=== PATIENT | male | born 1960 | race American Indian/Alaskan Native ===

== ENCOUNTER 2017-08-19 11:58 | Emergency (ER) | payer BC ==
[2017-08-19 14:40] LABS: Basophils % (Auto) 0.6 % (0.0-1.8); Eosinophils % (Auto) 3.4 % (0.0-4.3); Hematocrit 44.3 % (35.5-45.6); Mean Corpuscular HGB Conc 34 % (32-34); Mean Corpuscular Hemoglobin 29 pg (28-32); Mean Corpuscular Volume 86 fl (84-94); Platelet Count 203 K/mm3 (140-440); Red Blood Count 5.16 M/mm3 (3.65-5.03); Red Cell Distribution Width 14.5 % (13.2-15.2); White Blood Count 6.7 K/mm3 (4.5-11.0)
[2017-08-19 14:57] LABS: Blood Urea Nitrogen 18 mg/dL (9-20); Calcium 9.1 mg/dL (8.4-10.2); Carbon Dioxide 24 mmol/L (22-30); Glucose 226 mg/dL (75-100)
[2017-08-19 14:58] LABS: Anion Gap 16 mmol/L; Chloride 100.6 mmol/L (98-107); Potassium 3.9 mmol/L (3.6-5.0); Sodium 137 mmol/L (137-145)
--- NOTE | 2017-08-19 15:03 | XRay Report ---
Chest 2 views: History: Chest pain/SOB. Findings: Normal cardiomediastinal silhouette. Trachea is midline. No consolidation, pneumothorax or pleural effusion. Impression: No acute cardiopulmonary findings.
[2017-08-19] MEDS ORDERED: MORPHINE IV ONE (17:10)
[2017-08-19] MEDS ORDERED: ZOFRAN IV ONE (17:10)
[2017-08-19] MEDS ORDERED: NACL 0.9% 1000 ML 1,000 ML IV ONE (17:10)
--- NOTE | 2017-08-19 19:27 | Emergency Department Report ---
HPI - General Chief Complaint: Chest Pain Time Seen by Provider: 08/19/17 17:09 - HPI HPI: The patient is a 56-year-old male presents for evaluation of chest pain. The patient reports right-sided chest pain she has not pain last night, 20 hours prior to my evaluation. He states that his pain has been on and off since, in severity, sharp in quality, exacerbated with movement of the right arm, radiating into the right proximal arm. The patient denies fever, neck pain, parasthesias, dyspnea, cough, hemoptysis, palpitations, dizziness, syncope, unilateral leg swelling, calf muscle pain. Patient also denies cocaine or other stimulant use, history of DVT or PE, recent immobilization, or history of cancer. ED Past Medical Hx - Past Medical History Previous Medical History?: Yes Hx Hypertension: Yes Hx Diabetes: Yes - Surgical History Past Surgical History?: Yes Additional Surgical History: rt arm rotator cuff repair [id number]; Thyroidectomy 2008 - Social History Smoking Status: Never Smoker Substance Use Type: None - Medications Home Medications: Home Medications Medication Instructions Recorded Confirmed Last Taken Type Allopurinol [Zyloprim] 100 mg PO QDAY 07/09/15 07/09/15 07/08/15 History Atorvastatin Calcium [Lipitor] 20 mg PO QHS 07/09/15 07/09/15 07/08/15 History Canagliflozin (Nf) [Invokana] 100 mg PO QAM 07/09/15 07/09/15 07/08/15 History Glimepiride [Amaryl] 2 mg PO QAM 07/09/15 07/09/15 07/08/15 History Ibuprofen [Motrin 400 MG tab] 400 mg PO Q8H PRN #30 tablet 07/09/15 Unknown Rx Olmesartan/Hydrochlorothiazide 1 tab PO QDAY 07/09/15 07/09/15 07/08/15 History [Benicar HCT 40-25 mg] Sitagliptin Phosphate [Januvia] 100 mg PO QDAY 07/09/15 07/09/15 07/08/15 History Synthroid 137 mcg PO QDAY 07/09/15 07/09/15 07/08/15 History Zolpidem [Ambien] 10 mg PO QHS 07/09/15 07/09/15 07/08/15 History cloNIDine [Catapres] 0.2 mg PO QHS 07/09/15 07/09/15 07/08/15 History traMADol [Ultram 50 MG tab] 50 mg PO Q6HR PRN #20 tablet 07/09/15 Unknown Rx traMADol [Ultram 50 MG tab] 50 mg PO Q6HR PRN #20 tablet 08/19/17 Unknown Rx ED Review of Systems ROS: Stated complaint: CHEST PAIN Other details as noted in HPI Constitutional: denies: fever ENT: denies: throat or neck pain Respiratory: denies: cough, shortness of breath Cardiovascular: reports chest pain Endocrine: denies unexplained weight loss or gain Gastrointestinal: denies: abdominal pain, nausea Genitourinary: denies: dysuria Musculoskeletal: denies: leg swelling Skin: denies: rash Neurological: denies: headache Hematological/Lymphatic: denies: easy bleeding or easy bruising Psych: denies sadness or hopelessness Physical Exam - Physical Exam Vital Signs: Vital Signs 08/19/17 08/19/17 08/19/17 13:46 17:03 17:05 Temperature 98.2 F Pulse Rate 87 75 Respiratory 16 18 18 Rate Blood Pressure 132/55 128/84 O2 Sat by Pulse 97 98 Oximetry 08/19/17 08/19/17 08/19/17 17:11 17:21 17:30 Temperature Pulse Rate 77 76 75 Respiratory 18 13 19 Rate Blood Pressure 128/84 128/84 133/88 O2 Sat by Pulse 98 99 97 Oximetry 08/19/17 08/19/17 08/19/17 18:00 18:30 19:00 Temperature Pulse Rate 74 72 73 Respiratory 17 15 18 Rate Blood Pressure 138/84 139/81 147/90 O2 Sat by Pulse 99 99 100 Oximetry 08/19/17 19:02 Temperature Pulse Rate 76 Respiratory Rate Blood Pressure O2 Sat by Pulse Oximetry Physical Exam: General: well-nourished, well-developed, no acute distress Head: Normocephalic, atraumatic Eyes: normal sclera ENT: Mucous membranes are pale and dry Neck: No neck stiffness, no cervical adenopathy Respiratory: Breath sounds equal bilaterally, no wheezing, rales, or rhonchi Cardio: S1 and S2 present, no murmurs, rubs, gallops, capillary refill is delayed Abdomen: Normoactive bowel sounds, soft abdomen, no tenderness Chest WALL/Back: tenderness to palpation of the right lateral chest wall and intercostal space 4-5 at the anterior axillary line, no redness, warmth, fluctuance, crepitus, swelling, ecchymosis or purpura Musc: In the arms or legs, no swelling of the right arm, sensation, motor function, distal pulses intact in the right arm, right arm compartments are soft and pliable, no signs of compartment syndrome Skin: No rash Neuro: no facial drooping, normal speech Psych: Normal affect ED Course Vital Signs 08/19/17 08/19/17 08/19/17 13:46 17:03 17:05 Temperature 98.2 F Pulse Rate 87 75 Respiratory 16 18 18 Rate Blood Pressure 132/55 128/84 O2 Sat by Pulse 97 98 Oximetry 08/19/17 08/19/17 08/19/17 17:11 17:21 17:30 Temperature Pulse Rate 77 76 75 Respiratory 18 13 19 Rate Blood Pressure 128/84 128/84 133/88 O2 Sat by Pulse 98 99 97 Oximetry 08/19/17 08/19/17 08/19/17 18:00 18:30 19:00 Temperature Pulse Rate 74 72 73 Respiratory 17 15 18 Rate Blood Pressure 138/84 139/81 147/90 O2 Sat by Pulse 99 99 100 Oximetry 08/19/17 19:02 Temperature Pulse Rate 76 Respiratory Rate Blood Pressure O2 Sat by Pulse Oximetry ED Medical Decision Making - Lab Data Result diagrams: 08/19/17 14:09 08/19/17 14:09 - Medical Decision Making The patient was seen and examined by myself. The patient is placed on a radiation monitor and continuous pulse ox. On initial evaluation, the patient was found to be in no distress. EKG was negative for findings suggestive of acute cardiac infarct. Labs and imaging are obtained. Chest x-ray is negative for pneumothorax, focal consolidation, pulmonary vascular congestion, pleural effusion, or other obvious acute cardiopulmonary disease process. Lab results revealed elevated glucose level of >200, with normal bicarbonate and anion gap, and otherwise labs were non-concerning including levels of troponin, WBC, hemoglobin, hematocrit, electrolytes, renal function. The patient is given 1 L normal saline fluid bolus for treatment of dehydration and hyperglycemia. The patient was reevaluated and reported that their symptoms were markedly improved. As the patient has a VIOLA risk score less than 2, and a well's score less than 2, the patient is at low risk of ACS or pulmonary emboli etiology of their symptoms. The patient is stable for discharge with outpatient follow-up. The patient is given follow-up and return instructions. The patient expressed understanding and agreed with the plan. The patient is discharged in stable condition. Critical care attestation.: If time is entered above; I have spent that time in minutes in the direct care of this critically ill patient, excluding procedure time. ED Disposition Clinical Impression: Acute chest pain, Dehydration, mild, Acute hyperglycemia Disposition: TO HOME OR SELFCARE Is pt being admited?: No Does the pt Need Aspirin: No Condition: Stable Instructions: Chest Pain (ED), Diabetic Hyperglycemia (ED) Prescriptions: traMADol [Ultram 50 MG tab] 50 mg PO Q6HR PRN #20 tablet PRN Reason: Pain Referrals: PRIMARY CARE,MD [Primary Care Provider] - 3-5 Days Time of Disposition: 19:20
[2017-08-19 19:46] VITALS: BP 143/84
== END 2017-08-19 19:50 | disposition home or self-care (01) ==
LOC: ED 11:58
DX: R07.89 Other chest pain (principal); E86.0 Dehydration; E11.65 Type 2 diabetes mellitus with hyperglycemia; I10 Essential (primary) hypertension
CPT/HCPCS: 36415; 71020; 80048; 84484; 85025; 93005; 93010; 96361; 96374; 96375; 99284; J2270; J2405; J7030

== ENCOUNTER 2018-06-22 17:56 | Emergency (ER) | payer BC ==
[2018-06-22 21:58] VITALS: BP 163/98
[2018-06-22] MEDS ORDERED: ULTRAM PO ONE (22:46)
--- NOTE | 2018-06-22 23:09 | Emergency Department Report ---
ED General Adult HPI - General Chief complaint: Skin/Abscess/Foreign Body Stated complaint: NOT ON CHEST/PAIN Time Seen by Provider: 06/22/18 22:45 Source: patient Mode of arrival: Ambulatory Limitations: No Limitations - History of Present Illness Initial comments: Patient states 7-year-old -[place] male with history of hypertension diabetes patient presents with left anterior chest mass over an year seen by PCP for same Dr. Dorsey, patient states masses mood over the past month now sore to touch there's no fever no chills no drainage no erythema no new swelling no shortness of breath no dizziness no nausea vomiting. Symptoms are relieved by NSAIDs symptoms are exacerbated by palpation and movement. Patient has not seen Gen. surgery to this point. Onset/Timin -: year(s) Location: chest (left anterior chest wall ) Radiation: non-radiation Severity scale (0 -10): 5 Quality: sharp Consistency: intermittent Improves with: rest Worsens with: movement Associated Symptoms: denies: confusion, chest pain, cough, diaphoresis, fever/ chills, headaches, loss of appetite, malaise, nausea/vomiting, rash, seizure, shortness of breath, syncope, weakness Treatments Prior to Arrival: none - Related Data Home Medications Medication Instructions Recorded Confirmed Last Taken Allopurinol [Zyloprim] 100 mg PO QDAY 07/09/15 07/09/15 07/08/15 Atorvastatin Calcium [Lipitor] 20 mg PO QHS 07/09/15 07/09/15 07/08/15 Canagliflozin (Nf) [Invokana] 100 mg PO QAM 07/09/15 07/09/15 07/08/15 Glimepiride [Amaryl] 2 mg PO QAM 07/09/15 07/09/15 07/08/15 Olmesartan/Hydrochlorothiazide 1 tab PO QDAY 07/09/15 07/09/15 07/08/15 [Benicar HCT 40-25 mg] Sitagliptin Phosphate [Januvia] 100 mg PO QDAY 07/09/15 07/09/15 07/08/15 Synthroid 137 mcg PO QDAY 07/09/15 07/09/15 07/08/15 Zolpidem [Ambien] 10 mg PO QHS 07/09/15 07/09/15 07/08/15 cloNIDine [Catapres] 0.2 mg PO QHS 07/09/15 07/09/15 07/08/15 Previous Rx's Medication Instructions Recorded Last Taken Type Ibuprofen [Motrin 400 MG tab] 400 mg PO Q8H PRN #30 tablet 07/09/15 Unknown Rx traMADol [Ultram 50 MG tab] 50 mg PO Q6HR PRN #20 tablet 07/09/15 Unknown Rx traMADol [Ultram 50 MG tab] 50 mg PO Q6HR PRN #20 tablet 08/19/17 Unknown Rx Ibuprofen 800 mg PO TID PRN #30 tab 06/22/18 Unknown Rx Allergies Allergy/AdvReac Type Severity Reaction Status Date / Time No Known Allergies Allergy Unverified 07/09/15 08:38 ED Review of Systems ROS: Stated complaint: NOT ON CHEST/PAIN Other details as noted in HPI Constitutional: denies: chills, fever Eyes: denies: eye pain, eye discharge, vision change ENT: denies: ear pain, throat pain Respiratory: denies: cough, shortness of breath, wheezing Cardiovascular: denies: chest pain, palpitations Endocrine: no symptoms reported Gastrointestinal: denies: abdominal pain, nausea, diarrhea Genitourinary: denies: urgency, dysuria Musculoskeletal: denies: back pain, joint swelling, arthralgia Skin: other (left chest wall mass ) Neurological: denies: headache, weakness, paresthesias Psychiatric: denies: anxiety, depression Hematological/Lymphatic: denies: easy bleeding, easy bruising ED Past Medical Hx - Past Medical History Hx Hypertension: Yes Hx Diabetes: Yes Additional medical history: thyroid, gout - Surgical History Additional Surgical History: rt arm rotator cuff repair [id number]; Thyroidectomy 2008 - Social History Smoking Status: Never Smoker Substance Use Type: None - Medications Home Medications: Home Medications Medication Instructions Recorded Confirmed Last Taken Type Allopurinol [Zyloprim] 100 mg PO QDAY 07/09/15 07/09/15 07/08/15 History Atorvastatin Calcium [Lipitor] 20 mg PO QHS 07/09/15 07/09/15 07/08/15 History Canagliflozin (Nf) [Invokana] 100 mg PO QAM 07/09/15 07/09/15 07/08/15 History Glimepiride [Amaryl] 2 mg PO QAM 07/09/15 07/09/15 07/08/15 History Ibuprofen [Motrin 400 MG tab] 400 mg PO Q8H PRN #30 tablet 07/09/15 Unknown Rx Olmesartan/Hydrochlorothiazide 1 tab PO QDAY 07/09/15 07/09/15 07/08/15 History [Benicar HCT 40-25 mg] Sitagliptin Phosphate [Januvia] 100 mg PO QDAY 07/09/15 07/09/15 07/08/15 History Synthroid 137 mcg PO QDAY 07/09/15 07/09/15 07/08/15 History Zolpidem [Ambien] 10 mg PO QHS 07/09/15 07/09/15 07/08/15 History cloNIDine [Catapres] 0.2 mg PO QHS 07/09/15 07/09/15 07/08/15 History traMADol [Ultram 50 MG tab] 50 mg PO Q6HR PRN #20 tablet 07/09/15 Unknown Rx traMADol [Ultram 50 MG tab] 50 mg PO Q6HR PRN #20 tablet 08/19/17 Unknown Rx Ibuprofen 800 mg PO TID PRN #30 tab 06/22/18 Unknown Rx ED Physical Exam - General Limitations: No Limitations General appearance: alert, in no apparent distress - Head Head exam: Present: atraumatic, normocephalic - Eye Eye exam: Present: normal appearance, PERRL, EOMI Pupils: Present: normal accommodation - ENT ENT exam: Present: normal orophraynx, mucous membranes moist, TM's normal bilaterally, normal external ear exam - Neck Neck exam: Present: normal inspection, full ROM. Absent: tenderness, lymphadenopathy, thyromegaly - Respiratory Respiratory exam: Present: normal lung sounds bilaterally, chest wall tenderness (left lateral chest wall mass 2x1 cm movable mild pain no erythema no drainage non fluctuant ). Absent: respiratory distress, wheezes, stridor, accessory muscle use, decreased breath sounds, prolonged expiratory - Cardiovascular Cardiovascular Exam: Present: regular rate, normal rhythm, normal heart sounds. Absent: systolic murmur, diastolic murmur, rubs, gallop - GI/Abdominal GI/Abdominal exam: Present: soft, normal bowel sounds. Absent: distended, tenderness, guarding, rebound, organomegaly, mass, bruit, pulsatile mass, hernia - Rectal Rectal exam: Present: deferred - Extremities Exam Extremities exam: Present: normal inspection - Back Exam Back exam: Present: normal inspection - Neurological Exam Neurological exam: Present: alert, oriented X3 - Psychiatric Psychiatric exam: Present: normal affect, normal mood - Skin Skin exam: Present: warm, dry, intact, normal color, other (left lateral chest wall mass as above ). Absent: rash ED Course Vital Signs 06/22/18 06/22/18 06/22/18 18:29 21:56 22:53 Temperature 98.1 F 98.1 F Pulse Rate 80 75 Respiratory 18 20 16 Rate Blood Pressure 148/101 163/98 O2 Sat by Pulse 99 97 Oximetry ED Medical Decision Making - Radiology Data Radiology results: image reviewed no infiltrates no opacities. - Medical Decision Making This is a chest wall mass 1 x 2 cm movable nonfluctuant no erythema no drainage there is no fever no chills mass present for 1 year Patient followed by PCP Dr. dorsey patient will follow with same in 2-3 days and follow-up with general surgery appointment appointment with prescribed NSAIDs when necessary for pain patient has history of hypertension however has not taking hypertension medication today patient advised to take hypertensive medication upon arrival to currently there is no dizziness no lightheadedness no headache no shortness of breath no chest pain patient is an O 3 and ambulatory at baseline per patient with no acute distress Critical care attestation.: If time is entered above; I have spent that time in minutes in the direct care of this critically ill patient, excluding procedure time. ED Disposition Clinical Impression: Chest wall mass Disposition: DC-01 TO HOME OR SELFCARE Is pt being admited?: No Does the pt Need Aspirin: No Condition: Good Instructions: Breast Mass (ED) Prescriptions: Ibuprofen 800 mg PO TID PRN #30 tab PRN Reason: Pain , Severe (7-10) Referrals: RODY DORSEY MD [Primary Care Provider] - 3-5 Days JOSE CALHOUN MD [Staff Physician] - 3-5 Days Forms: Work/School Release Form(ED) Time of Disposition: 23:18
--- NOTE | 2018-06-22 23:54 | XRay Report ---
FINAL REPORT EXAM: XR CHEST ROUTINE 2V HISTORY: chest wall mass TECHNIQUE: Two view chest PA and lateral PRIORS: None. FINDINGS: Cardiac and mediastinal contours are unremarkable. No focal pulmonary infiltrate is identified. No pleural fluid collection seen. Pulmonary vasculature is unremarkable. IMPRESSION: Negative two-view chest
== END 2018-06-22 23:20 | disposition home or self-care (01) ==
LOC: ED 17:56
DX: R22.2 Localized swelling, mass and lump, trunk (principal); I10 Essential (primary) hypertension; E11.9 Type 2 diabetes mellitus without complications
CPT/HCPCS: 71046; 99283